=== PATIENT | female | born 1965 | race Caucasian/White ===

== ENCOUNTER 2025-03-11 06:38 | Day surgery (SDC) | payer OTHER, SELFPAY | END 2025-03-11 13:31 | disposition home or self-care (01) | LOC: GI 06:38 | PROVIDERS: ATTENDING PHYSICIAN Internal Medicine Gastroenterology | DX: R12 Heartburn (principal); R07.89 Other chest pain; K29.70 Gastritis, unspecified, without bleeding; K29.50 Unspecified chronic gastritis without bleeding | CPT/HCPCS: 43239; 88305; 88342 ==